=== PATIENT | female | born 1965 | race Hispanic/Latino ===

== ENCOUNTER 2017-11-10 12:59 | Emergency (ER) | payer BC ==
[2017-11-10 13:00] VITALS: BMI 47.0
[2017-11-10 13:22] VITALS: TEMP 98.4
--- NOTE | 2017-11-10 13:24 | ED PDOC ---
Arrival/HPI - General Chief Complaint: Back Pain Time Seen by Provider: 11/10/17 13:19 Historian: Patient - History of Present Illness Narrative History of Present Illness (Text): 11/10/17 13:25 A 52 year old female, whose past medical history includes kidney stones, presents to the emergency department complaining of pain "between shoulder blades" radiating forwrad. Describes pain as "constant throbbing." Patient reports pain somewhat similar to past kidney stones. Notes also experiencing hematuria. Patient denies any other complaints at this time. Also, patient mentions not having her period for 6 years. upon emergency departmearrival pt reports hematuria resolved PMD: 11/10/17 16:47 Symptom Onset: Sudden Symptom Course: Unchanged Quality: Throbbing (constant) Past Medical History - Provider Review Nursing Documentation Reviewed: Yes - Infectious Disease Hx of Infectious Diseases: None - Reproductive Menopause: No - Cardiac Hx Cardiac Disorders: No - Pulmonary Hx Respiratory Disorders: No - Neurological Hx Neurological Disorder: No Hx Migraine: Yes - HEENT Hx HEENT Disorder: No Other/Comment: TONSILLECTOMY - Renal Hx Renal Disorder: Yes Hx Pyelonephritis: Yes (11-04-15) Other/Comment: Kidney infections - Endocrine/Metabolic Hx Endocrine Disorders: No - Hematological/Oncological Hx Blood Disorders: No - Integumentary Hx Dermatological Disorder: No Other/Comment: CYST REMOVED TO RIGHT UPPER BACK - Musculoskeletal/Rheumatological Hx Musculoskeletal Disorders: No Hx Falls: No - Gastrointestinal Hx Gastrointestinal Disorders: No - Genitourinary/Gynecological Hx Genitourinary Disorders: Yes Other/Comment: [id number],2 C/S - Psychiatric Hx Psychophysiologic Disorder: No Hx Substance Use: No - Surgical History Other/Comment: 2 CESEAREAN SECTION,TONSILLECTOMY,CYST REMOVED TO RIGHT UPPER BACK Family/Social History - Physician Review Nursing Documentation Reviewed: Yes Family/Social History: No Known Family HX Smoking Status: Never Smoked Hx Alcohol Use: Yes (OCCASIONALLY) Hx Substance Use: No Allergies/Home Meds Allergies/Adverse Reactions: Allergies No Known Allergies Allergy (Verified 11/05/15 11:38) Home Medications: Home Meds Medication Instructions Recorded Confirmed No Known Home Med 11/10/17 11/10/17 Review of Systems - Physician Review All systems were reviewed & negative as marked: Yes - Review of Systems Genitourinary Female: absent: Hematuria Musculoskeletal: Other (pain between shoulder blades ) Physical Exam Vital Signs Reviewed: Yes Vital Signs Temp Pulse Resp BP Pulse Ox 11/10/17 16:00 75 18 145/63 97 11/10/17 14:15 79 18 148/65 97 11/10/17 13:18 98.4 F 82 16 154/62 H 99 Temperature: Afebrile Blood Pressure: Normal Pulse: Regular Respiratory Rate: Normal Appearance: Positive for: Well-Appearing Pain Distress: None Mental Status: Positive for: Alert and Oriented X 3 - Systems Exam Head: Present: Atraumatic, Normocephalic Pupils: Present: PERRL Extroacular Muscles: Present: EOMI Conjunctiva: Present: Normal Mouth: Present: Moist Mucous Membranes Neck: Present: Normal Range of Motion Respiratory/Chest: Present: Clear to Auscultation, Good Air Exchange. No: Respiratory Distress, Accessory Muscle Use Cardiovascular: Present: Regular Rate and Rhythm, Normal S1, S2. No: Murmurs Abdomen: Present: Tenderness (right flank tenderness) Back: Present: Normal Inspection Upper Extremity: Present: Normal Inspection. No: Cyanosis, Edema Lower Extremity: Present: Normal Inspection. No: Edema Neurological: Present: GCS=15, CN II-XII Intact, Speech Normal Skin: Present: Warm, Dry, Normal Color. No: Rashes Psychiatric: Present: Alert, Oriented x 3, Normal Insight, Normal Concentration Medical Decision Making ED Course and Treatment: 11/10/17 13:28 Impression: 52 year old female with flank pain. Physical exam shows right flank tenderness. pt also reports pain between "shoulder blades" radiating anteriorly , states "feels like i need my back cracked"- consider renal colic, aortic pathology, uti/pyelo Plan: -- EKG -- Chest X-ray -- Abd/Pelvis CT -- Labs -- Urinalysis -- Reassess and disposition Prior Visits: Notes and results from previous visits were reviewed. Patient was last seen in the emergency department on 11/05/2015 for left flank pain. Patient was admitted. Progress Notes: EKG: Ordered, reviewed, and independently interpreted the EKG. Rate : 76 BPM Rhythm : NSR Interpretation : No ST-segment elevations or depressions, no T-wave inversions, normal intervals. Comparison : No previous EKG for comparison. 11/10/17 14:47 Patient states hematuria has resolved. Patient has been asked to have CT done for aortic dissect with iv contrast Patient states pain radiates to anterior. Patient refuses CT stating "I know nothing else if wrong." Patient has been asked multiple times to have CT scan completed with iv contrast and patient refused. specifically requests dry ct. p 11/10/2017 14:49 Chest X-ray IMPRESSION: No active disease. Dictator: Bucky Pandey MD 11/10/17 16:47 pt reasseess: pain resolved. asking for dc. retrun precautions advised. - Lab Interpretations Lab Results: 11/10/17 14:15 11/10/17 14:15 Lab Results 11/10/17 14:35: Urine Color Yellow, Urine Appearance Clear, Urine pH 6.0, Ur Specific [place] 1.025, Urine Protein Negative, Urine Glucose (UA) Negative, Urine Ketones Negative, Urine Blood Large H, Urine Nitrate Negative, Urine Bilirubin Negative, Urine Urobilinogen 0.2, Ur Leukocyte Esterase Negative, Urine RBC 20 - 25, Urine WBC 1 - 3, Ur Epithelial Cells 4 - 5, Amorphous Sediment Few, Urine Bacteria Many, Urine HCG, Qual Negative 11/10/17 14:15: Sodium 140, Potassium 3.9, Chloride 103, Carbon Dioxide 31, Anion Gap 10, BUN 13, Creatinine 0.7, Est GFR ( Amer) > 60, Est GFR (Non- Af Amer) > 60, Random Glucose 116 H, Calcium 9.4, Magnesium 1.7, Total Bilirubin 0.5, AST 24, ALT 28, Alkaline Phosphatase 59, Lactate Dehydrogenase 432, Total Creatine Kinase 35, Troponin I < 0.01, Total Protein 6.9, Albumin 3.8 , Globulin 3.1, Albumin/Globulin Ratio 1.2, Lipase 77 11/10/17 14:15: PT 11.7, INR 1.07, APTT 30.4 11/10/17 14:15: WBC 10.3, RBC 4.16, Hgb 12.7, Hct 38.4, MCV 92.3, MCH 30.5, MCHC 33.1, RDW 13.8, Plt Count 285, MPV 9.9, Gran % 58.2, Lymph % (Auto) 35.0, [place] % (Auto) 4.8, Eos % (Auto) 1.7, Baso % (Auto) 0.3, Gran # 6.00, Lymph # 3.6 H, [place] # 0.5, Eos # 0.2, Baso # 0.03 I have reviewed the lab results: Yes - RAD Interpretation Radiology Orders: 11/10/17 13:28 CHEST PORTABLE [RAD] Stat 11/10/17 14:44 ABD & PELVIS W/O PO OR IV CONT [CT] Stat - Medication Orders Current Medication Orders: Discontinued Medications Acetaminophen (Tylenol 325mg Tab) 975 mg PO STAT STA Stop: 11/10/17 13:32 Last Admin: 11/10/17 14:30 Dose: 975 mg - Scribe Statement The provider has reviewed the documentation as recorded by the Niles Raygoza Provider Scribe Attestation: All medical record entries made by the Scribe were at my direction and personally dictated by me. I have reviewed the chart and agree that the record accurately reflects my personal performance of the history, physical exam, medical decision making, and the department course for this patient. I have also personally directed, reviewed, and agree with the discharge instructions and disposition. Disposition/Present on Arrival - Present on Arrival Any Indicators Present on Arrival: No History of DVT/PE: No History of Uncontrolled Diabetes: No Urinary Catheter: No History of Decub. Ulcer: No History Surgical Site Infection Following: None - Disposition Have Diagnosis and Disposition been Completed?: Yes Diagnosis: Hematuria Disposition: HOME/ ROUTINE Disposition Time: 16:55 Condition: STABLE Discharge Instructions (ExitCare): Acute Hematuria (ED), Back Pain (ED) Additional Instructions: return to emergency room with worsening symptoms or concerns. Referrals: Drew Smith MD [Primary Care Provider] - Follow up with primary [facility] [Outside] - Follow up with primary Alexey Smyth MD [Staff Provider] - Follow up with primary Mercedes Smyth MD [Staff Provider] - Follow up with primary Forms: [employer] (Eth[place]ian)
[2017-11-10 14:15] VITALS: RESP 18; O2SAT 97
[2017-11-10 14:26] LABS: BASO # 0.03 K/mm3 (0.0-2.0); BASO % 0.3 % (0.0-3.0); EOS # 0.2 (0.0-0.7); EOS % 1.7 % (1.5-5.0); GRAN % 58.2 % (50.0-68.0); HEMATOCRIT 38.4 % (36.0-48.0); LYMPH # 3.6 (1.2-3.4); MEAN CELL VOLUME 92.3 fl (80.0-105.0); MEAN CORPUSCULAR HEMOGLOBIN 30.5 pg (25.0-35.0); MEAN CORPUSCULAR HGB CONC 33.1 g/dl (31.0-37.0); MEAN PLATELET VOLUME 9.9 fl (7.0-11.0); MONO # 0.5 (0.1-0.6); MONO % 4.8 % (1.0-6.0); RED CELL DISTRIBUTION WIDTH 13.8 % (11.5-14.5); WHITE BLOOD COUNT 10.3 10^3/ul (4.5-11.0)
[2017-11-10 14:33] LABS: ALB/GLOB RATIO 1.2 (1.1-1.8); ALKALINE PHOSPHATASE 59 U/L (38-126); ALT/SGPT 28 U/L (7-56); AST/SGOT 24 U/L (14-36); BILIRUBIN,TOTAL 0.5 mg/dL (0.2-1.3); BLOOD UREA NITROGEN 13 mg/dL (7-21); CALCIUM 9.4 mg/dL (8.4-10.5); CARBON DIOXIDE 31 mmol/L (21-33); CHLORIDE 103 mmol/L (98-107); GFR AFRICAN-AMERICAN > 60; GLUCOSE,RANDOM 116 mg/dL (70-110); LIPASE 77 U/L (23-300); MAGNESIUM 1.7 mg/dL (1.7-2.2); POTASSIUM 3.9 mmol/L (3.6-5.0); SODIUM 140 mmol/L (132-148); TOTAL PROTEIN 6.9 g/dL (5.8-8.3)
[2017-11-10 14:44] LABS: TROPONIN I < 0.01 ng/mL
[2017-11-10 14:44] LABS: URINE BILIRUBIN NEGATIVE (NEGATIVE); URINE BLOOD LARGE (NEGATIVE); URINE GLUCOSE (UA) NEGATIVE (NEGATIVE); URINE KETONE NEGATIVE (NEGATIVE); URINE LEUKOCYTE ESTERASE NEGATIVE Leu/uL (NEGATIVE); URINE PROTEIN NEGATIVE mg/dL (<30 mg/dL); URINE UROBILINOGEN 0.2 E.U./dL (<1 E.U./dL)
[2017-11-10 14:47] LABS: URINE APPEARANCE CLEAR (CLEAR); URINE COLOR YELLOW (YELLOW)
--- NOTE | 2017-11-10 14:51 | RAD ---
HISTORY: abd pain COMPARISON: No prior. FINDINGS: LUNGS: No active pulmonary disease. PLEURA: No significant pleural effusion identified, no pneumothorax apparent. CARDIOVASCULAR: Normal. OSSEOUS STRUCTURES: No significant abnormalities. VISUALIZED UPPER ABDOMEN: Normal. OTHER FINDINGS: None. IMPRESSION: No active disease.
[2017-11-10 14:52] LABS: URINE AMORPHOUS SEDIMENT FEW; URINE BACTERIA MANY (NEG); URINE RBC 20 - 25 /hpf (0-2)
[2017-11-10 15:11] LABS: INR 1.07 (0.93-1.08)
[2017-11-10 15:23] LABS: PARTIAL THROMBOPLASTIN TIME 30.4 Seconds (25.1-36.5)
[2017-11-10 16:04] VITALS: BP 145/63; PULSE 75
--- NOTE | 2017-11-10 16:43 | CT ---
PROCEDURE: CT Abdomen and Pelvis without intravenous contrast HISTORY: hematuria COMPARISON: 11/05/2015 TECHNIQUE: Without contrast.. Contrast Dose: None Radiation dose: Total exam DLP = 1945 mGy-cm. This CT exam was performed using one or more of the following dose reduction techniques: Automated exposure control, adjustment of the mA and/or kV according to patient size, and/or use of iterative reconstruction technique. FINDINGS: LOWER THORAX: Trace lingular pleural-based postinflammatory changes-similar LIVER: Unremarkable. No gross lesion or ductal dilatation. GALLBLADDER AND BILE DUCTS: Unremarkable. PANCREAS: Unremarkable. No gross lesion or ductal dilatation. SPLEEN: Unremarkable. ADRENALS: Unremarkable. No mass. KIDNEYS AND URETERS: Bilateral parapelvic renal cysts left larger and more numerous than those suggested on the right side. This is similar status referenced previously. No contrast enhanced images are available No renal or ureteral calculi VASCULATURE: Very few phleboliths. No aortic aneurysm. BOWEL: Unremarkable. No obstruction. No gross mural thickening. APPENDIX: Unremarkable. Normal appendix. PERITONEUM: Unremarkable. No free fluid. No free air. LYMPH NODES: Unremarkable. No enlarged lymph nodes. BLADDER: Unremarkable. REPRODUCTIVE: Unremarkable. 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 IMPRESSION: No urolithiasis. Bilateral parapelvic renal cysts larger are numerous on the left. Some on the left are exophytic No lytic lesions or fractures appreciated Left inferior iliac sided sclerotic arthrosis-similar. Bilateral inferior facet hypertrophic arthrosis
--- NOTE | 2017-11-11 19:20 | CARD ---
APPROVED REPORT EKG Measurement Heart [id number] <Conclusion> Normal sinus rhythm Cannot rule out Anterior infarct, age undetermined Abnormal ECG
== END 2017-11-10 17:03 | disposition home or self-care (01) ==
LOC: ED 12:59
DX: R31.9 Hematuria, unspecified (principal)

== ENCOUNTER 2018-03-10 08:06 | Emergency (ER) | payer BC ==
[2018-03-10 08:25] VITALS: BMI 49.3
[2018-03-10] MEDS ORDERED: DiphenhydrAMINE 50 mg/ml Inj IVP STA (08:27)
[2018-03-10] MEDS ORDERED: Sodium Chloride 0.9% 1,000 ML IV STA (08:27)
--- NOTE | 2018-03-10 08:28 | ED PDOC ---
Arrival/HPI - General Time Seen by Provider: 03/10/18 08:22 Historian: Patient - History of Present Illness Narrative History of Present Illness (Text): 03/10/18 08:23 A 52 year old female, who denies past medical history, presents to the emergency department complaining of abdominal pain. Patient reports she was diagnosed with dysfunctional uterine bleeding 5 months. She was prescribed provera however states she has not taken it because she is scared. Patient called her physician today who instructed her to come into the emergency room for further evaluation. Patient denies any fever, chills, nausea, vomiting, diarrhea, chest pain, shortness of breath or any other complaints. Past Medical History - Provider Review Nursing Documentation Reviewed: Yes - Infectious Disease Hx of Infectious Diseases: None - Cardiac Hx Cardiac Disorders: No - Pulmonary Hx Respiratory Disorders: No - Neurological Hx Neurological Disorder: No Hx Migraine: Yes - HEENT Hx HEENT Disorder: No Other/Comment: TONSILLECTOMY - Renal Hx Renal Disorder: Yes Hx Pyelonephritis: Yes (11-04-15) Other/Comment: Kidney infections - Endocrine/Metabolic Hx Endocrine Disorders: No - Hematological/Oncological Hx Blood Disorders: No - Integumentary Hx Dermatological Disorder: No Other/Comment: CYST REMOVED TO RIGHT UPPER BACK - Musculoskeletal/Rheumatological Hx Musculoskeletal Disorders: No Hx Falls: No - Gastrointestinal Hx Gastrointestinal Disorders: No - Genitourinary/Gynecological Hx Genitourinary Disorders: Yes Other/Comment: [id number],2 C/S - Psychiatric Hx Psychophysiologic Disorder: No Hx Substance Use: No - Surgical History Other/Comment: 2 CESEAREAN SECTION,TONSILLECTOMY,CYST REMOVED TO RIGHT UPPER BACK Family/Social History - Physician Review Nursing Documentation Reviewed: Yes Family/Social History: No Known Family HX Smoking Status: Never Smoked Hx Alcohol Use: Yes (OCCASIONALLY) Hx Substance Use: No Allergies/Home Meds Allergies/Adverse Reactions: Allergies No Known Allergies Allergy (Verified 03/10/18 08:31) Home Medications: Home Meds Medication Instructions Recorded Confirmed No Known Home Med 11/10/17 03/10/18 Review of Systems - Physician Review All systems were reviewed & negative as marked: Yes - Review of Systems Constitutional: absent: Fevers, Night Sweats Respiratory: absent: SOB Cardiovascular: absent: Chest Pain Gastrointestinal: Abdominal Pain. absent: Diarrhea, Nausea, Vomiting Physical Exam Vital Signs Reviewed: Yes Vital Signs Temp Pulse Resp BP Pulse Ox 03/10/18 12:49 80 18 129/76 99 03/10/18 11:26 98.2 F 79 17 134/89 99 03/10/18 08:19 98.7 F 88 18 100 Temperature: Afebrile Pulse: Regular Respiratory Rate: Normal Appearance: Positive for: Well-Appearing, Non-Toxic, Comfortable, Other ( Morbidly obese female, crying hysterically, difficulty staying still) Pain Distress: None Mental Status: Positive for: Alert and Oriented X 3 - Systems Exam Head: Present: Atraumatic, Normocephalic Pupils: Present: PERRL Extroacular Muscles: Present: EOMI Conjunctiva: Present: Normal Mouth: Present: Moist Mucous Membranes Neck: Present: Normal Range of Motion Respiratory/Chest: Present: Clear to Auscultation, Good Air Exchange. No: Respiratory Distress, Accessory Muscle Use Cardiovascular: Present: Regular Rate and Rhythm, Normal S1, S2. No: Murmurs Abdomen: No: Tenderness, Distention, Peritoneal Signs, Mass/Organomegaly Back: Present: Normal Inspection Upper Extremity: Present: Normal Inspection. No: Cyanosis, Edema Lower Extremity: Present: Normal Inspection. No: Edema Neurological: Present: GCS=15, CN II-XII Intact, Speech Normal Skin: Present: Warm, Dry, Normal Color. No: Rashes Psychiatric: Present: Alert, Oriented x 3, Normal Insight, Normal Concentration Medical Decision Making ED Course and Treatment: 03/10/18 08:23 Impression: A 52 year old female with abdominal pain Plan: -- Abdomen and pelvis CT -- Tranvaginal ultrasound -- Labs -- Blood and Urine culture -- Urinalysis -- Benadryl, Morphine, Zofran and IV fluids -- Reassess and disposition Progress Notes: Report Date : 03/10/2018 10:43:59 Procedure: Transvaginal ultrasound Dictator : Aaliyah Callahan MD IMPRESSION: The central endometrial echo complex measures 6 mm and is thickened for postmenopausal status. Clinical follow-up is advised and if clinically indicated, correlation with tissue sampling may be performed for definitive evaluation. Large 6.7 x 6.0. X 6.6 cm subserosal fundal fibroid. Both ovaries are not visualized. No adnexal mass. Report Date : 03/10/2018 10:45:34 PROCEDURE: CT Abdomen and Pelvis with contrast Dictator : Bucky Gonzáles MD IMPRESSION: Fluid in the endometrial and endocervical canal. Significance uncertain. No acute intra-abdominal findings. 03/10/18 12:50 I have discussed the results and plan with the patient, who expresses understanding. Patient in agreement with plan to be discharged home. Patient is stable for discharge. Patient was instructed to follow up with physician or return if symptoms worsen or new concerning symptoms arise. - Lab Interpretations Lab Results: 03/10/18 08:15 03/10/18 08:15 Lab Results 03/10/18 10:00: Blood Type Confirm O POSITIVE 03/10/18 08:50: pO2 58 H, VBG pH 7.55 H, VBG pCO2 25.0 L, VBG HCO3 21.9, VBG Total CO2 22.7, VBG O2 Sat (Calc) 96.7 H, VBG Base Excess 0.9, VBG Potassium 3.8 , Glucose 120 H, Lactate 1.9, FiO2 21.0, Sodium 141.0, Chloride 108.0 H, Venous Blood Potassium 3.8 03/10/18 08:50: Urine Color Yellow, Urine Appearance Clear, Urine pH 7.0, Ur Specific [place] 1.015, Urine Protein Negative, Urine Glucose (UA) Negative, Urine Ketones 15 H, Urine Blood Large H, Urine Nitrate Negative, Urine Bilirubin Negative, Urine Urobilinogen 0.2, Ur Leukocyte Esterase Negative, Urine RBC 25 - 30, Urine WBC 0 - 2, Ur Epithelial Cells 4 - 5, Amorphous Sediment Small, Urine Bacteria Many 03/10/18 08:15: Blood Type O POSITIVE, Antibody Screen Negative, BBK History Checked No verified bt 03/10/18 08:15: Beta HCG, Quant < 2.39 03/10/18 08:15: Sodium 143, Potassium 3.9, Chloride 107, Carbon Dioxide 21, Anion Gap 19, BUN 11, Creatinine 0.7, Est GFR ( Amer) > 60, Est GFR (Non- Af Amer) > 60, Random Glucose 117 H, Calcium 9.6, Total Bilirubin 0.6, AST 26, ALT 34, Alkaline Phosphatase 77, Total Protein 7.6, Albumin 4.2, Globulin 3.3, Albumin/Globulin Ratio 1.3 03/10/18 08:15: PT 11.5, INR 1.00 03/10/18 08:15: WBC 9.8, RBC 4.57, Hgb 13.3, Hct 39.9, MCV 87.3 D, MCH 29.1, MCHC 33.3, RDW 13.7, Plt Count 330, MPV 9.9, Gran % 59.1, Lymph % (Auto) 33.5, [place] % (Auto) 4.8, Eos % (Auto) 2.2, Baso % (Auto) 0.4, Gran # 5.77, Lymph # ( Auto) 3.3, [place] # (Auto) 0.5, Eos # (Auto) 0.2, Baso # (Auto) 0.04 I have reviewed the lab results: Yes - RAD Interpretation Radiology Orders: 03/10/18 08:27 ABD PELVIS PO & IV CONTRAST [CT] Stat TRANSVAGINAL [US] Stat - Medication Orders Current Medication Orders: Discontinued Medications Diphenhydramine HCl (Benadryl) 50 mg IVP STAT STA Stop: 03/10/18 08:28 Last Admin: 03/10/18 08:46 Dose: 50 mg IVP Administration Document 03/10/18 08:46 PAUL (Rec: 03/10/18 08:46 PAUL MARSH) Charges for Administration # of IVP Administrations 1 Sodium Chloride (Sodium Chloride 0.9%) 1,000 mls @ 999 mls/hr IV .Q1H1M STA Stop: 03/10/18 09:27 Last Admin: 03/10/18 08:46 Dose: 999 mls/hr eMAR Start Stop Document 03/10/18 08:46 PAUL (Rec: 03/10/18 08:47 PAUL MARSH) Intravenous Solution Start Date 03/10/18 Start Time 08:47 End Date 03/10/18 End time 09:47 Total Infusion Time 60 Morphine Sulfate (Morphine) 10 mg IVP STAT STA Stop: 03/10/18 08:28 Last Admin: 03/10/18 08:45 Dose: 10 mg MAR Pain Assessment Document 03/10/18 08:45 PAUL (Rec: 03/10/18 08:45 PAUL MARSH) Pain Reassessment Is this a pain reassessment? No Sleep Is patient sleeping during reassessment? No Presence of Pain Presence of Pain Yes IVP Administration Document 03/10/18 08:45 PAUL (Rec: 03/10/18 08:45 PAUL [id number]) Charges for Administration # of IVP Administrations 1 Re-Assess: BANDAR Pain Assessment Document 03/10/18 09:45 ELAINEKang (Rec: 03/10/18 11:11 PAUL [id number]) Pain Reassessment Is this a pain reassessment? No Sleep Is patient sleeping during reassessment? No Presence of Pain Presence of Pain Yes Pain Scale Used Pain Scale Used Numeric Description Description Intermittent Intensity of Pain at present 3 Ondansetron HCl (Zofran Inj) 8 mg IVP STAT STA Stop: 03/10/18 08:28 Last Admin: 03/10/18 08:46 Dose: 8 mg IVP Administration Document 03/10/18 08:46 PAUL (Rec: 03/10/18 08:46 ELAINEKang [id number]) Charges for Administration # of IVP Administrations 1 - Scribe Statement The provider has reviewed the documentation as recorded by the Kittyibkristina Melo Provider Scribe Attestation: All medical record entries made by the Scribe were at my direction and personally dictated by me. I have reviewed the chart and agree that the record accurately reflects my personal performance of the history, physical exam, medical decision making, and the department course for this patient. I have also personally directed, reviewed, and agree with the discharge instructions and disposition. Disposition/Present on Arrival - Present on Arrival Any Indicators Present on Arrival: No History of DVT/PE: No History of Uncontrolled Diabetes: No Urinary Catheter: No History of Decub. Ulcer: No History Surgical Site Infection Following: None - Disposition Have Diagnosis and Disposition been Completed?: Yes Diagnosis: Uterine fibroid, Dysfunctional uterine bleeding Disposition: HOME/ ROUTINE Disposition Time: 12:08 Patient Plan: Discharge Patient Problems: Current Active Problems Problem Status Onset Uterine fibroid Acute Dysfunctional uterine bleeding Acute Condition: GOOD Discharge Instructions (ExitCare): Uterine Fibroids (DC), Heavy Periods (DC) Additional Instructions: Mrs Talbert - You have a fibroid and dysfunctional uterine bleeding. Based on the CT and Ultrasound you may need to have a DC as an outpatient. Follow up with your [facility] and take all your labs and imaging results with you. Return to us if any problems. Best- Dr. Drew Stewart Referrals: Jacqueline Smith APN-C [Primary Care Provider] - Follow up with primary
[2018-03-10] MEDS ORDERED: Iohexol 240 (50 ml) ONE (08:35)
[2018-03-10 08:51] LABS: BASO # 0.04 K/mm3 (0.0-2.0); BASO % 0.4 % (0.0-3.0); EOS # 0.2 (0.0-0.7); EOS % 2.2 % (1.5-5.0); GRAN # 5.77 (1.4-6.5); GRAN % 59.1 % (50.0-68.0); HEMOGLOBIN 13.3 g/dL (12.0-16.0); LYMPH # 3.3 (1.2-3.4); LYMPH % 33.5 % (22.0-35.0); MEAN CELL VOLUME 87.3 fl (80.0-105.0); MEAN CORPUSCULAR HEMOGLOBIN 29.1 pg (25.0-35.0); MEAN CORPUSCULAR HGB CONC 33.3 g/dl (31.0-37.0); MEAN PLATELET VOLUME 9.9 fl (7.0-11.0); MONO # 0.5 (0.1-0.6); MONO % 4.8 % (1.0-6.0); RBC 4.57 10^6/uL (3.5-6.1); RED CELL DISTRIBUTION WIDTH 13.7 % (11.5-14.5); WHITE BLOOD COUNT 9.8 10^3/ul (4.5-11.0)
[2018-03-10 08:55] LABS: VENOUS BLOOD GAS BASE EXCESS 0.9 mmol/L (0.0-2.0); VENOUS BLOOD GAS PO2 58 mm/Hg (30-55); VENOUS BLOOD PH 7.55 (7.32-7.43)
[2018-03-10 09:00] LABS: ALB/GLOB RATIO 1.3 (1.1-1.8); ALBUMIN 4.2 g/dL (3.0-4.8); ALT/SGPT 34 U/L (7-56); AST/SGOT 26 U/L (14-36); BLOOD UREA NITROGEN 11 mg/dL (7-21); CALCIUM 9.6 mg/dL (8.4-10.5); GFR AFRICAN-AMERICAN > 60; GFR NON-AFRICAN AMERICAN > 60
[2018-03-10 09:06] LABS: URINE BILIRUBIN NEGATIVE (NEGATIVE); URINE BLOOD LARGE (NEGATIVE); URINE GLUCOSE (UA) NEGATIVE (NEGATIVE); URINE LEUKOCYTE ESTERASE NEGATIVE Leu/uL (NEGATIVE); URINE PROTEIN NEGATIVE mg/dL (<30 mg/dL); URINE UROBILINOGEN 0.2 E.U./dL (<1 E.U./dL)
[2018-03-10 09:08] LABS: URINE APPEARANCE CLEAR (CLEAR); URINE COLOR YELLOW (YELLOW)
[2018-03-10 09:10] LABS: PROTHROMBIN TIME 11.5 SECONDS (9.4-12.5)
[2018-03-10 09:13] LABS: URINE AMORPHOUS SEDIMENT SMALL; URINE BACTERIA MANY (NEG); URINE RBC 25 - 30 /hpf (0-2); URINE WBC 0 - 2 /hpf (0-6)
--- NOTE | 2018-03-10 10:45 | US ---
HISTORY: Bilateral Lower Quadrant Abdominal/Pelvic Pain COMPARISON: None available. TECHNIQUE: Transabdominal and transvaginal pelvic ultrasound was performed. FINDINGS: UTERUS: Measures 13.3 x 6.6 x 7.4 cm. The uterus is anteverted and enlarged. There is a 6.7 x 6.0 x 6.6 cm subserosal fundal fibroid. ENDOMETRIUM: Measures 6.0 mm in diameter. Grossly normal in appearance. CERVIX: No cervical abnormality identified. RIGHT OVARY: Not visualized. LEFT OVARY: Not visualized. FREE FLUID: No significant free fluid noted. OTHER FINDINGS: None. IMPRESSION: The central endometrial echo complex measures 6 mm and is thickened for postmenopausal status. Clinical follow-up is advised and if clinically indicated, correlation with tissue sampling may be performed for definitive evaluation. Large 6.7 x 6.0. X 6.6 cm subserosal fundal fibroid. Both ovaries are not visualized. No adnexal mass.
--- NOTE | 2018-03-10 10:46 | CT ---
PROCEDURE: CT Abdomen and Pelvis with contrast HISTORY: Bilateral Lower Quadrant Pain COMPARISON: 11/10/2017 TECHNIQUE: Contrast dose: 150 cc of Omni 350 Radiation dose: Total exam DLP = 1159 mGy-cm. This CT exam was performed using one or more of the following dose reduction techniques: Automated exposure control, adjustment of the mA and/or kV according to patient size, and/or use of iterative reconstruction technique. FINDINGS: LOWER THORAX: Unremarkable. LIVER: Unremarkable. No gross lesion or ductal dilatation. Fatty infiltration of the liver GALLBLADDER AND BILE DUCTS: Unremarkable. PANCREAS: Unremarkable. No gross lesion or ductal dilatation. SPLEEN: Unremarkable. ADRENALS: Unremarkable. No mass. KIDNEYS AND URETERS: Multiple parapelvic cysts are seen. No evidence of hydronephrosis. VASCULATURE: Unremarkable. No aortic aneurysm. BOWEL: Unremarkable. No obstruction. No gross mural thickening. APPENDIX: Normal appendix. PERITONEUM: Unremarkable. No free fluid. No free air. LYMPH NODES: Unremarkable. No enlarged lymph nodes. BLADDER: Unremarkable. REPRODUCTIVE: There is fluid in the endometrial and endocervical canal measuring 18 mm in diameter. BONES: No acute fracture. OTHER FINDINGS: None. IMPRESSION: Fluid in the endometrial and endocervical canal. Significance uncertain. No acute intra-abdominal findings.
[2018-03-10 11:27] VITALS: TEMP 98.2; O2SAT 99
[2018-03-10 12:49] VITALS: BP 129/76; PULSE 80; RESP 18
== END 2018-03-10 12:49 | disposition home or self-care (01) ==
LOC: ED 08:06
DX: D25.9 Leiomyoma of uterus, unspecified (principal); N93.8 Other specified abnormal uterine and vaginal bleeding
CPT/HCPCS: 74177; 76830; 80053; 81001; 82803; 84702; 85025; 85610; 86850; 86900; 87040; 87086; 96361; 96374; 96375; 99285; J1200; J2270; J2405; J7040; Q9966; Q9967